=== PATIENT | male | born 1980 | race Caucasian/White ===

== ENCOUNTER 2016-05-04 11:21 | Outpatient (CLI) | payer BC, OTHER | END 2016-05-04 11:22 | disposition home or self-care (01) | LOC: NAVSJIPCSP 11:21 | PROVIDERS: ATTEND Nurse Practitioner Family | DX: R79.89 Other specified abnormal findings of blood chemistry (principal) | CPT/HCPCS: 36415; 80074 ==

== ENCOUNTER 2017-05-10 09:20 | Emergency (ER) | payer BC ==
[2017-05-10] MEDS ORDERED: diphenhydrAMINE 50 MG/ML VIAL ONE (09:39)
== END 2017-05-10 09:54 | disposition home or self-care (01) ==
LOC: NAV ERS 09:20
DX: L50.9 Urticaria, unspecified (principal); E11.9 Type 2 diabetes mellitus without complications; I10 Essential (primary) hypertension; F17.210 Nicotine dependence, cigarettes, uncomplicated; Z79.84 Long term (current) use of oral hypoglycemic drugs; Z79.899 Other long term (current) drug therapy
CPT/HCPCS: 96372; J1200

== ENCOUNTER 2017-06-27 15:28 | Outpatient (CLI) | payer BC ==
[2017-06-27 16:29] LABS: Hemoglobin 8.3 g/dL (14.0-18.0); Mean Corpuscular Volume 73.4 fL (80.0-94.0); Red Blood Cell (RBC) Count 4.05 mill/uL (4.70-6.10); White Blood Cell (WBC) Count 3.8 thou/uL (4.8-10.8)
[2017-06-27 16:30] LABS: #Eosinphils 0.1 thou/uL (0.0-0.7); #Lymphocytes 0.8 thou/uL (1.20-3.40); #Monocytes 0.8 thou/uL (0.11-0.59); %Basophils 1.7 % (0.0-1.0); %Eosinophils 2.4 % (0.0-10.0); %Monocytes 21.8 % (0.0-10.0); %Neutrophils 54.1 % (42.0-75.0); Mean Corpuscular HGB CONC 27.9 g/dL (32.0-36.0); Mean Corpuscular Hemoglobin 20.5 pg (27.0-31.0); Mean Platelet Volume 9.1 fL (7.4-10.4); Platelet Count 171 thou/uL (130-400); RBC Distribution Width 19.5 % (11.5-14.5)
[2017-06-27 16:31] LABS: #Basophils 0.1 thou/uL (0.0-0.2)
[2017-06-27 21:00] LABS: Iron 26 ug/dL (65-175); Iron Binding Capacity, Total 591 mcg/dL (261-462)
== END 2017-06-27 15:29 | disposition home or self-care (01) ==
LOC: NAV LAB 15:28
DX: D64.9 Anemia, unspecified (principal)
CPT/HCPCS: 82728; 83540; 83550; 84238; 85025